=== PATIENT | male | born 1980 | race African-American/Black ===

== ENCOUNTER 2021-05-11 04:22 | Day surgery (SDC) | payer OTHER ==
[2021-05-10 13:55] VITALS: BMI 23.5
[2021-05-11] MEDS ORDERED: LIDOCAINE 1%/EPI 1:100000 (50 ML MULTI DOSE VIAL) ONE (07:47)
[2021-05-11] MEDS ORDERED: BUPIVACAINE HCL/PF 0.5% (5MG/ML) 10 ML VIAL ONE (08:46)
[2021-05-11] MEDS ORDERED: MIDAZOLAM HCL 2 MG/2 ML SINGLE DOSE VIAL ONE ×2 (10:29)
[2021-05-11] MEDS ORDERED: PROPOFOL 20 ML ONE ×3 (10:29→11:22)
[2021-05-11] MEDS ORDERED: ceFAZolin SODIUM 1 GM VIAL ONE ×2 (10:29→11:02)
[2021-05-11] MEDS ORDERED: LIDOCAINE HCL/PF 2% SDV 5ML VIAL ONE (10:29)
[2021-05-11] MEDS ORDERED: ceFAZolin SODIUM 1 GM VIAL IVPB ONE (11:10)
[2021-05-11] MEDS ORDERED: BUPIVACAINE HCL/PF 0.5% (5MG/ML) 10 ML VIAL IJ ONE (11:13)
[2021-05-11] MEDS ORDERED: LIDOCAINE 1%/EPI 1:100000 (20 ML MULTI DOSE VIAL) IJ ONE (11:13)
[2021-05-11] MEDS ORDERED: KETOROLAC TROMETHAMINE 30 MG/1 ML VIAL ONE (11:18)
[2021-05-11] MEDS ORDERED: oxyCODONE HCL 5 MG TABLET PO PRN (11:58)
[2021-05-11] MEDS ORDERED: ONDANSETRON 4 MG/2 ML VIAL IVPUSH PRN (11:58)
[2021-05-11] MEDS ORDERED: ACETAMINOPHEN 500 MG TABLET (FP) PO PRN (11:58)
[2021-05-11] MEDS ORDERED: LACTATED RINGERS SOLUTION 1,000 ML IV SCH ×2 (12:00)
[2021-05-11 13:50] VITALS: TEMP 97.9
[2021-05-11 15:26] VITALS: BP 140/99; PULSE 63
== END 2021-05-11 14:40 | disposition home or self-care (01) ==
LOC: JASU-SURG 04:22
PROVIDERS: ATTEND Surgery
PROC: 0JB50ZZ Excision of Left Neck Subcutaneous Tissue and Fascia, Open Approach (ICD-10-PCS; principal; 2021-05-11 10:53)
DX: D21.0 Benign neoplasm of connective and other soft tissue of head, face and neck (principal)
CPT/HCPCS: 88304-TC; 94760